=== PATIENT | male | born 1980 | race Caucasian/White ===

== ENCOUNTER 2024-06-25 17:25 | Emergency (ER) | payer OTHER ==
[2024-06-25 17:36] VITALS: BP 165/76; PULSE 103; RESP 20; TEMP 98.2; BMI 25.9
[2024-06-25] MEDS ORDERED: ACETAMINOPHEN INJECTION 100 ML ONE (17:49)
[2024-06-25] MEDS: ACETAMINOPHEN 1000 MG/100 ML BAG IVPB ONE (18:05)
[2024-06-25 18:13] LABS: HEMATOCRIT 38.5 % (35.4-49); HEMOGLOBIN 13.2 G/dL (11.7-16.9); MCH 33.1 pg (25.7-33.7); MCHC 34.4 g/dl (32.0-35.9); MEAN CELL VOLUME 96.3 fl (80-96); MEAN PLT VOLUME 7.6 fl (7.5-11.1); PLATELET COUNT 217.6 10^3/uL (134-434); RDW 14.1 % (11.9-15.9); WHITE BLOOD COUNT 6.3 10^3/uL (4.0-10.8)
[2024-06-25 18:28] LABS: ALBUMIN 4.6 g/dl (3.4-5.0); ALK PHOS 79 U/L (45-117); ANION GAP 9 mmol/L (4-13); BILIRUBIN,TOTAL 0.7 mg/dl (0.2-1); CALCIUM 9.1 mg/dl (8.5-10.1); CHLORIDE 103 mmol/L (98-107); CO2 27 mmol/L (21-32); GLUCOSE,RANDOM 137 mg/dl (74-106); POTASSIUM 3.7 mmol/L (3.5-5.1); SGOT/AST 16 U/L (15-37); SGPT/ALT 14 U/L (7-52); SODIUM 139 mmol/L (136-145)
[2024-06-25 18:46] LABS: PLATELET ESTIMATE ADEQUATE
[2024-06-25] MEDS ORDERED: FUROSEMIDE 40 MG/4 ML INJECTABLE VIAL ONE (18:52)
[2024-06-25] MEDS: FUROSEMIDE 40 MG/4 ML INJECTABLE VIAL IVPUSH ONE (18:57)
[2024-06-25] MEDS ORDERED: oxyCODONE HCL 5 MG TABLET ONE (19:06)
[2024-06-25] MEDS: oxyCODONE HCL 5 MG TABLET PO ONE (19:08)
== END 2024-06-25 20:58 | disposition home or self-care (01) ==
LOC: FER 17:25
PROC: 3E033NZ Introduction of Analgesics, Hypnotics, Sedatives into Peripheral Vein, Percutaneous Approach (ICD-10-PCS; principal; 2024-06-25)
PROC: 3E033GC Introduction of Other Therapeutic Substance into Peripheral Vein, Percutaneous Approach (ICD-10-PCS; 2024-06-25)
DX: I87.2 Venous insufficiency (chronic) (peripheral) (principal); M79.671 Pain in right foot; G89.29 Other chronic pain; R00.0 Tachycardia, unspecified
CPT/HCPCS: 36415; 80053; 85025; 93971-TC; 96374; 96375; 99285-25; J0131

== ENCOUNTER 2024-07-05 10:41 | Inpatient (IN) | payer OTHER ==
[2024-07-05] MEDS ORDERED: ACETAMINOPHEN INJECTION 100 ML ONE (11:47)
[2024-07-05] MEDS: ACETAMINOPHEN 1000 MG/100 ML BAG IVPB ONE (11:52)
[2024-07-05 11:55] LABS: BASO % 0.6 % (0-2.0); HEMATOCRIT 37.3 % (35.4-49); HEMOGLOBIN 12.3 GM/dL (11.7-16.9); LYMPH % 14.5 % (8-40); MCHC 32.9 g/dl (32.0-35.9); MEAN CELL VOLUME 97.2 fl (80-96); MEAN PLT VOLUME 7.3 fl (7.5-11.1); MONO % 7.1 % (3.8-10.2); NEUT % 76.8 % (42.8-82.8); PLATELET COUNT 283 10^3/uL (134-434); RBC 3.84 M/mm3 (4.00-5.60); RDW 13.9 % (11.9-15.9); WHITE BLOOD COUNT 5.1 K/mm3 (4.0-10.0)
[2024-07-05 12:04] LABS: INR 1.05 (0.83-1.09); PROTHROMBIN TIME (PATIENT) 11.5 SEC (9.7-13.0)
[2024-07-05 12:06] LABS: ACTIVATED PTT 29.6 SECONDS (25.2-36.5)
[2024-07-05 12:38] LABS: CHLORIDE 108 mmol/L (98-107); SODIUM 140 mmol/L (136-145)
[2024-07-05 12:39] LABS: CALCIUM 9.2 mg/dL (8.5-10.1); LACTIC ACID 2.1 mmol/L (0.4-2.0)
[2024-07-05 12:40] LABS: ANION GAP 6 mmol/L (4-13); BLOOD UREA NITROGEN 29.3 mg/dL (7-18); CO2 26 mmol/L (21-32); GLUCOSE,RANDOM 110 mg/dL (74-106)
[2024-07-05 12:43] LABS: CREATININE 0.9 mg/dL (0.55-1.3)
[2024-07-05 13:17] LABS: HIV INTERPRETATION NEGATIVE (NEGATIVE)
[2024-07-05] MEDS: SODIUM CHLORIDE 0.9% 500 ML INFUS.BAG IV ONE (15:11)
[2024-07-05 17:32] LABS: POTASSIUM 3.8 mmol/L (3.5-5.1)
[2024-07-05 17:34] LABS: ALBUMIN 3.7 g/dl (3.4-5.0); BLOOD UREA NITROGEN 23.3 mg/dL (7-18); CALCIUM 8.4 mg/dL (8.5-10.1)
[2024-07-05 17:37] VITALS: BMI 26.4
[2024-07-05 17:38] LABS: CREATININE 0.8 mg/dL (0.55-1.3)
[2024-07-05 17:39] LABS: BILIRUBIN,TOTAL 0.8 mg/dL (0.2-1); TOT PROT 6.5 g/dl (6.4-8.2)
[2024-07-05] MEDS: ACETAMINOPHEN 325 MG TABLET (FP) PO PRN (21:26)
[2024-07-06] MEDS ORDERED: oxyCODONE HCL 5 MG TABLET PO PRN (09:33)
[2024-07-06] MEDS ORDERED: ACETAMINOPHEN 325 MG TABLET (FP) PO PRN ×4 (09:35→09:45)
[2024-07-06 09:59] LABS: BASO % 0.6 % (0-2.0); EOS % 1.7 % (0-4.5); HEMATOCRIT 37.2 % (35.4-49); HEMOGLOBIN 12.7 GM/dL (11.7-16.9); LYMPH % 19.3 % (8-40); MCH 32.5 pg (25.7-33.7); MCHC 34.1 g/dl (32.0-35.9); MEAN CELL VOLUME 95.5 fl (80-96); MEAN PLT VOLUME 8.2 fl (7.5-11.1); MONO % 6.5 % (3.8-10.2); NEUT % 71.9 % (42.8-82.8); PLATELET COUNT 272 10^3/uL (134-434); RBC 3.89 M/mm3 (4.00-5.60); RDW 13.6 % (11.9-15.9); WHITE BLOOD COUNT 5.4 K/mm3 (4.0-10.0)
[2024-07-06] MEDS: ENOXAPARIN NA (PORCINE) 40 MG/0.4 ML DISP.SYRIN SQ SCH (10:09)
[2024-07-06 10:27] LABS: POTASSIUM 4.4 mmol/L (3.5-5.1)
[2024-07-06 10:48] LABS: ALBUMIN 3.8 g/dl (3.4-5.0); CALCIUM 8.8 mg/dL (8.5-10.1)
[2024-07-06 10:49] LABS: BLOOD UREA NITROGEN 24.1 mg/dL (7-18)
[2024-07-06 10:52] LABS: CREATININE 0.9 mg/dL (0.55-1.3); PHOSPHOROUS 2.4 mg/dL (2.5-4.9)
[2024-07-06 10:53] LABS: BILIRUBIN,TOTAL 1.5 mg/dL (0.2-1)
[2024-07-07] MEDS: oxyCODONE HCL 5 MG TABLET PO PRN (03:30)
[2024-07-07 09:36] LABS: BASO % 0.5 % (0-2.0); EOS % 1.9 % (0-4.5); HEMATOCRIT 37.6 % (35.4-49); HEMOGLOBIN 12.6 GM/dL (11.7-16.9); MCH 32.3 pg (25.7-33.7); MCHC 33.4 g/dl (32.0-35.9); MEAN CELL VOLUME 96.7 fl (80-96); MEAN PLT VOLUME 8.1 fl (7.5-11.1); MONO % 8.8 % (3.8-10.2); NEUT % 65.8 % (42.8-82.8); PLATELET COUNT 278 10^3/uL (134-434); RBC 3.89 M/mm3 (4.00-5.60); RDW 13.5 % (11.9-15.9); WHITE BLOOD COUNT 4.6 K/mm3 (4.0-10.0)
[2024-07-07 09:58] LABS: ALBUMIN 3.8 g/dl (3.4-5.0); BLOOD UREA NITROGEN 21.4 mg/dL (7-18)
[2024-07-07 10:01] LABS: BILIRUBIN,TOTAL 0.9 mg/dL (0.2-1)
[2024-07-07 10:04] LABS: POTASSIUM 4.1 mmol/L (3.5-5.1)
[2024-07-07 10:05] LABS: CALCIUM 8.6 mg/dL (8.5-10.1)
[2024-07-08 08:32] LABS: HEMATOCRIT 37.3 % (35.4-49); HEMOGLOBIN 12.3 GM/dL (11.7-16.9); MCH 31.9 pg (25.7-33.7); MCHC 33.1 g/dl (32.0-35.9); MEAN CELL VOLUME 96.3 fl (80-96); PLATELET COUNT 270 10^3/uL (134-434); RBC 3.87 M/mm3 (4.00-5.60); RDW 13.4 % (11.9-15.9); WHITE BLOOD COUNT 5.2 K/mm3 (4.0-10.0)
[2024-07-08 08:45] LABS: POTASSIUM 4.4 mmol/L (3.5-5.1)
[2024-07-08 08:52] LABS: CALCIUM 8.9 mg/dL (8.5-10.1)
[2024-07-08 08:53] LABS: BLOOD UREA NITROGEN 21.6 mg/dL (7-18)
[2024-07-09 08:36] LABS: HEMATOCRIT 38.7 % (35.4-49); HEMOGLOBIN 12.8 GM/dL (11.7-16.9); MCH 32.1 pg (25.7-33.7); MCHC 33.2 g/dl (32.0-35.9); MEAN CELL VOLUME 96.7 fl (80-96); MEAN PLT VOLUME 8.3 fl (7.5-11.1); PLATELET COUNT 276 10^3/uL (134-434); RDW 13.4 % (11.9-15.9); WHITE BLOOD COUNT 4.7 K/mm3 (4.0-10.0)
[2024-07-09 08:50] LABS: BLOOD UREA NITROGEN 16.8 mg/dL (7-18); CALCIUM 9.2 mg/dL (8.5-10.1); MAGNESIUM 2.2 mg/dL (1.8-2.4); POTASSIUM 4.6 mmol/L (3.5-5.1)
[2024-07-09] MEDS ORDERED: HEPARIN NA (PORCINE) 5,000 UNITS/ML 1ML VIAL ONE ×2 (13:01→14:01)
[2024-07-09] MEDS ORDERED: PAPAVERINE HCL 30 MG/1 ML 10 ML VIAL NR ONE (13:01)
[2024-07-09] MEDS ORDERED: LIDOCAINE HCL 1%, 10 MG/ML (20ML VIAL) ONE (13:46)
[2024-07-09] MEDS ORDERED: SUCCINYLCHOLINE CHLORIDE 200 MG/10 ML SYRINGE ONE (13:51)
[2024-07-09] MEDS ORDERED: MIDAZOLAM HCL 2 MG/2 ML SINGLE DOSE VIAL ONE ×2 (13:51→15:58)
[2024-07-09] MEDS ORDERED: DEXAMETHASONE SOD PHOSPHATE 4 MG/1 ML VIAL ONE (13:53)
[2024-07-09] MEDS ORDERED: ONDANSETRON 4 MG/2 ML VIAL ONE (13:53)
[2024-07-09] MEDS ORDERED: ceFAZolin SODIUM 1 GM VIAL ONE (13:53)
[2024-07-09] MEDS ORDERED: GLYCOPYRROLATE 0.2 MG/1 ML VIAL ONE (13:53)
[2024-07-09] MEDS ORDERED: PROMETHAZINE HCL 25 MG/1 ML VIAL IVPB PRN ×2 (14:32→19:07)
[2024-07-09] MEDS ORDERED: LACTATED RINGERS SOLUTION 1,000 ML IV SCH (14:45)
[2024-07-09] MEDS ORDERED: PROPOFOL 20 ML ONE ×3 (14:55→16:07)
[2024-07-09] MEDS: ceFAZolin SODIUM 1 GM VIAL IVPB ONE (15:00)
[2024-07-09] MEDS: LIDOCAINE HCL 1%, 10 MG/ML (50 mL VIAL) INF ONE (15:16)
[2024-07-09] MEDS ORDERED: ROCURONIUM BROMIDE 50 MG/5 ML SYRINGE ONE (16:06)
[2024-07-09] MEDS ORDERED: HYDROmorphone HCl 2 MG/ML VIAL ONE (16:16)
[2024-07-09] MEDS ORDERED: PROTAMINE SULFATE 50 MG/5 ML VIAL ONE (18:21)
[2024-07-09] MEDS ORDERED: SUGAMMADEX SODIUM 200 MG/2 ML VIAL ONE (18:43)
[2024-07-09] MEDS ORDERED: ACETAMINOPHEN 325 MG TABLET (FP) PO PRN ×2 (19:07)
[2024-07-09] MEDS: LACTATED RINGERS SOLUTION 1,000 ML IV SCH (19:35)
[2024-07-09 19:37] LABS: HEMATOCRIT 30.9 % (35.4-49); HEMOGLOBIN 10.3 GM/dL (11.7-16.9); MCH 31.7 pg (25.7-33.7); MCHC 33.4 g/dl (32.0-35.9); MEAN PLT VOLUME 7.9 fl (7.5-11.1); PLATELET COUNT 222 10^3/uL (134-434); RBC 3.25 M/mm3 (4.00-5.60); RDW 13.6 % (11.9-15.9); WHITE BLOOD COUNT 8.8 K/mm3 (4.0-10.0)
[2024-07-09 19:53] LABS: INR 1.3 (0.83-1.09); PROTHROMBIN TIME (PATIENT) 14.3 SEC (9.7-13.0)
[2024-07-09 20:38] LABS: POTASSIUM 4.4 mmol/L (3.5-5.1)
[2024-07-09 20:40] LABS: CALCIUM 8.3 mg/dL (8.5-10.1)
[2024-07-09 20:41] LABS: ALBUMIN 3.1 g/dl (3.4-5.0); BLOOD UREA NITROGEN 16.7 mg/dL (7-18)
[2024-07-09 20:45] LABS: BILIRUBIN,TOTAL 0.8 mg/dL (0.2-1); TOT PROT 5.6 g/dl (6.4-8.2)
[2024-07-09] MEDS: MUPIROCIN 2% TOPICAL OINTMENT FOR DECOLONIZATION NS SCH (21:20)
[2024-07-09] MEDS: CHLORHEXIDINE GLUCONATE 4% CLEANSER FOR DECOLONIZATION TP SCH (21:20)
[2024-07-10] MEDS: CEFAZOLIN 1 GM/D5W 1 GM/50 ML BAG IVPB SCH ×2 (01:11→17:52)
[2024-07-10 06:16] LABS: BASO % 0.1 % (0-2.0); EOS % 0.1 % (0-4.5); HEMATOCRIT 28.1 % (35.4-49); HEMOGLOBIN 9.3 GM/dL (11.7-16.9); LYMPH % 11.6 % (8-40); MCHC 33.3 g/dl (32.0-35.9); MEAN CELL VOLUME 96.1 fl (80-96); MONO % 6.8 % (3.8-10.2); NEUT % 81.4 % (42.8-82.8); PLATELET COUNT 228 10^3/uL (134-434); RBC 2.92 M/mm3 (4.00-5.60); RDW 13.5 % (11.9-15.9); WHITE BLOOD COUNT 8.1 K/mm3 (4.0-10.0)
[2024-07-10 06:30] LABS: POTASSIUM 4.9 mmol/L (3.5-5.1)
[2024-07-10 06:35] LABS: CALCIUM 8.2 mg/dL (8.5-10.1); MAGNESIUM 1.8 mg/dL (1.8-2.4)
[2024-07-10 06:36] LABS: BLOOD UREA NITROGEN 16.5 mg/dL (7-18)
[2024-07-10 06:38] LABS: CREATININE 0.9 mg/dL (0.55-1.3)
[2024-07-10 06:40] LABS: BILIRUBIN,TOTAL 1.1 mg/dL (0.2-1)
[2024-07-10 07:00] LABS: TOT PROT 5.5 g/dl (6.4-8.2)
[2024-07-10] MEDS: ENOXAPARIN NA (PORCINE) 40 MG/0.4 ML DISP.SYRIN SQ SCH (09:52)
[2024-07-10 11:59] LABS: HEMATOCRIT 26.2 % (35.4-49); HEMOGLOBIN 8.7 GM/dL (11.7-16.9); MCH 31.9 pg (25.7-33.7); MCHC 33.4 g/dl (32.0-35.9); MEAN CELL VOLUME 95.7 fl (80-96); MEAN PLT VOLUME 7.7 fl (7.5-11.1); PLATELET COUNT 222 10^3/uL (134-434); RBC 2.74 M/mm3 (4.00-5.60); RDW 13.2 % (11.9-15.9); WHITE BLOOD COUNT 7.8 K/mm3 (4.0-10.0)
[2024-07-10] MEDS ORDERED: MUPIROCIN 2% TOPICAL OINTMENT FOR DECOLONIZATION NS SCH (22:00)
[2024-07-10] MEDS: ACETAMINOPHEN 325 MG TABLET (FP) PO PRN (22:15)
[2024-07-10 23:50] VITALS: RESP 18
[2024-07-11 08:55] LABS: BASO % 0.5 % (0-2.0); EOS % 2.3 % (0-4.5); HEMATOCRIT 26.4 % (35.4-49); HEMOGLOBIN 8.9 GM/dL (11.7-16.9); LYMPH % 15.2 % (8-40); MCH 32.3 pg (25.7-33.7); MCHC 33.9 g/dl (32.0-35.9); MEAN CELL VOLUME 95.1 fl (80-96); MEAN PLT VOLUME 8.5 fl (7.5-11.1); MONO % 8.6 % (3.8-10.2); NEUT % 73.4 % (42.8-82.8); PLATELET COUNT 214 10^3/uL (134-434); RBC 2.77 M/mm3 (4.00-5.60); RDW 13.7 % (11.9-15.9); WHITE BLOOD COUNT 7.4 K/mm3 (4.0-10.0)
[2024-07-11 09:18] LABS: POTASSIUM 4.1 mmol/L (3.5-5.1)
[2024-07-11 09:26] LABS: ALBUMIN 3.1 g/dl (3.4-5.0); BLOOD UREA NITROGEN 17.6 mg/dL (7-18); CALCIUM 8.1 mg/dL (8.5-10.1); MAGNESIUM 1.9 mg/dL (1.8-2.4)
[2024-07-11 09:29] LABS: CREATININE 0.9 mg/dL (0.55-1.3)
[2024-07-11 09:30] LABS: PHOSPHOROUS 2.3 mg/dL (2.5-4.9)
[2024-07-11 09:31] LABS: BILIRUBIN,TOTAL 0.7 mg/dL (0.2-1); TOT PROT 5.6 g/dl (6.4-8.2)
[2024-07-11] MEDS: ENOXAPARIN NA (PORCINE) 40 MG/0.4 ML DISP.SYRIN SQ SCH (10:22)
[2024-07-11 14:07] VITALS: BP 112/70; PULSE 60; TEMP 98.4
== END 2024-07-11 14:44 | disposition home health service (06) | DRG 181 ==
LOC: JER 10:41 → JERBED 14:38 → J8W 17:14 → JICU 07-09 20:26 → J8W 07-10 16:37
PROVIDERS: ATTEND Nurse Practitioner Family
PROC: X2K New Technology, Cardiovascular System, Bypass (ICD-10-PCS; 2024-07-09)
PROC: 047 Lower Arteries, Dilation (ICD-10-PCS; 2024-07-09)
PROC: 04LK0ZZ Occlusion of Right Femoral Artery, Open Approach (ICD-10-PCS; 2024-07-09)
PROC: 04BK0ZZ Excision of Right Femoral Artery, Open Approach (ICD-10-PCS; 2024-07-09)
PROC: B41DZZZ Fluoroscopy of Aorta and Bilateral Lower Extremity Arteries (ICD-10-PCS; 2024-07-09)
PROC: 04QK0ZZ Repair Right Femoral Artery, Open Approach (ICD-10-PCS; principal; 2024-07-09 14:00)
DX: I77.0 Arteriovenous fistula, acquired (principal); S91.301A Unspecified open wound, right foot, initial encounter; F17.210 Nicotine dependence, cigarettes, uncomplicated; X58.XXXA Exposure to other specified factors, initial encounter; Y93.9 Activity, unspecified; Y92.89 Other specified places as the place of occurrence of the external cause; Y99.9 Unspecified external cause status
CPT/HCPCS: 36415; 75635-TC; 76000-TC-FY; 80048; 80053; 83605; 83735; 84100; 85025; 85027; 85610; 85651; 85730; 86140; 86803; 86850; 86900; 86901; 86922; 87040; 87070; 87186; 87205; 87389; 93005; 93010; 93306-TC; 93970-TC; 94760; 97116-GP; 97162-GP; 99285-25; 99406; A6022; C1768; C1769; G0463-25; J0131; J1644; Q9967

== ENCOUNTER 2024-07-25 14:09 | Day surgery (SDC) | payer OTHER ==
[2024-07-25 14:20] VITALS: BMI 25.8
[2024-07-25 15:05] LABS: HEMATOCRIT 25.7 % (40.1-51.0); HEMOGLOBIN 8.1 g/dL (13.7-17.5); MCHC 31.5 g/dl (32.3-36.5); MEAN CELL VOLUME 92.1 fl (79.0-92.2); RDW 14.6 % (12.1-15.9)
[2024-07-25 15:08] LABS: INR 1.28 (0.83-1.09); PROTHROMBIN TIME (PATIENT) 14.1 SEC (9.7-13.0)
[2024-07-25 15:11] LABS: ACTIVATED PTT 27.5 SECONDS (25.2-36.5)
[2024-07-25 15:26] LABS: POTASSIUM 4.1 mmol/L (3.5-5.1)
[2024-07-25 15:28] LABS: CALCIUM 8.9 mg/dL (8.5-10.1)
[2024-07-25 15:29] LABS: ALBUMIN 3.2 g/dl (3.4-5.0); BLOOD UREA NITROGEN 17.4 mg/dL (7-18)
[2024-07-25 15:32] LABS: CREATININE 0.9 mg/dL (0.55-1.3)
[2024-07-25 15:33] LABS: BILIRUBIN,TOTAL 0.4 mg/dL (0.2-1); TOT PROT 7.7 g/dl (6.4-8.2)
[2024-07-25] MEDS ORDERED: LIDOCAINE HCL 1%, 10 MG/ML (20ML VIAL) ONE (15:57)
[2024-07-25] MEDS ORDERED: HEPARIN NA (PORCINE) 5,000 UNITS/ML 1ML VIAL ONE (15:57)
[2024-07-25] MEDS ORDERED: PROPOFOL 20 ML ONE ×3 (16:00→16:26)
[2024-07-25] MEDS ORDERED: MIDAZOLAM HCL 2 MG/2 ML SINGLE DOSE VIAL ONE ×2 (16:00→16:16)
[2024-07-25 16:12] LABS: MEAN PLT VOLUME 8.6 fl (9.4-12.4); PLATELET COUNT 935 x10^3/uL (163-337)
[2024-07-25] MEDS: ceFAZolin SODIUM 1 GM VIAL IVPB ONE (16:25)
[2024-07-25] MEDS ORDERED: ONDANSETRON 4 MG/2 ML VIAL ONE (16:33)
[2024-07-25] MEDS ORDERED: DEXAMETHASONE SOD PHOSPHATE 4 MG/1 ML VIAL ONE (16:33)
[2024-07-25] MEDS: LIDOCAINE HCL 1%, 10 MG/ML (20ML VIAL) INF ONE (17:12)
[2024-07-25] MEDS ORDERED: ONDANSETRON 4 MG/2 ML VIAL IVPUSH PRN (17:14)
[2024-07-25] MEDS ORDERED: LACTATED RINGERS SOLUTION 1,000 ML IV SCH (17:15)
[2024-07-25 19:26] VITALS: RESP 20
[2024-07-25 19:40] VITALS: BP 124/57; PULSE 67; TEMP 97.3
[2024-07-25] MEDS ORDERED: APIXABAN 5 MG TABLET PO SCH (22:00)
== END 2024-07-25 20:03 | disposition home or self-care (01) ==
LOC: JER 14:09 → JASUSAT 15:09
PROVIDERS: ATTEND Surgery
DX: I82.421 Acute embolism and thrombosis of right iliac vein (principal)
CPT/HCPCS: 36415; 76000-TC-FY; 80053; 85027; 85610; 85730; 86850; 86900; 86901; 93005; 93010; 94760; 99284-25; C1880; J1644

== ENCOUNTER 2024-08-03 06:55 | Day surgery (SDC) | payer OTHER ==
[2024-08-01 13:38] VITALS: BMI 24.0
[2024-08-03 12:36] VITALS: RESP 18; TEMP 98.3
[2024-08-03 13:24] VITALS: BP 120/70; PULSE 81
== END 2024-08-03 13:26 | disposition home or self-care (01) ==
LOC: JASU-ENDO 06:55
PROVIDERS: ATTEND Internal Medicine Gastroenterology
PROC: 0DB78ZX Excision of Stomach, Pylorus, Via Natural or Artificial Opening Endoscopic, Diagnostic (ICD-10-PCS; 2024-08-03)
PROC: 0DB68ZX Excision of Stomach, Via Natural or Artificial Opening Endoscopic, Diagnostic (ICD-10-PCS; principal; 2024-08-03 12:45)
DX: K29.50 Unspecified chronic gastritis without bleeding (principal); K21.00 Gastro-esophageal reflux disease with esophagitis, without bleeding; K44.9 Diaphragmatic hernia without obstruction or gangrene; K25.3 Acute gastric ulcer without hemorrhage or perforation; K26.3 Acute duodenal ulcer without hemorrhage or perforation
CPT/HCPCS: 88305-TC; 88341-TC; 88342-TC

== ENCOUNTER 2024-10-08 20:04 | Emergency (ER) | payer OTHER ==
[2024-10-08 20:24] VITALS: BP 142/94; PULSE 82; RESP 16; TEMP 98.1; BMI 26.5
[2024-10-08 22:10] LABS: ABSOLUTE IMMATURE GRANULOCYTES 0.01 x10^3/uL (0.0-0.031); BASOPHILS # 0.03 x10^3/uL (0.01-0.08); EOSINOPHIL % 4.9 % (0.8-7.0); EOSINOPHILS # 0.28 x10^3/uL (0.04-0.54); HEMATOCRIT 29.3 % (40.1-51.0); HEMOGLOBIN 8.8 g/dL (13.7-17.5); MEAN CELL VOLUME 72.7 fl (79.0-92.2); MEAN PLT VOLUME 8.7 fl (9.4-12.4); MONOCYTE # 0.46 x10^3/uL (0.30-0.82); MONOCYTE % 8.1 % (5.3-12.2); PLATELET COUNT 444 x10^3/uL (163-337); RDW 17.6 % (12.1-15.9)
[2024-10-08 22:16] LABS: INR 1.17 (0.83-1.09)
[2024-10-08 22:38] LABS: ALBUMIN 4.2 g/dl (3.4-5.0); ALK PHOS 96 U/L (45-117); ANION GAP 9 mmol/L (4-13); BILIRUBIN,TOTAL 0.5 mg/dl (0.2-1); CALCIUM 8.7 mg/dl (8.5-10.1); CHLORIDE 104 mmol/L (98-107); CO2 25 mmol/L (21-32); CREATININE 0.9 mg/dl (0.6-1.3); GLUCOSE,RANDOM 86 mg/dl (74-106); POTASSIUM 3.8 mmol/L (3.5-5.1); SGOT/AST 14 U/L (15-37); SGPT/ALT 7 U/L (7-52); SODIUM 138 mmol/L (136-145); TOT PROT 7.1 g/dl (6.4-8.2)
[2024-10-08] MEDS ORDERED: ACETAMINOPHEN INJECTION 100 ML ONE (22:56)
[2024-10-08] MEDS: ACETAMINOPHEN 1000 MG/100 ML BAG IVPB ONE (23:02)
[2024-10-08] MEDS ORDERED: CLINDAMYCIN HCL 150 MG CAPSULE (FP) ONE (23:50)
[2024-10-08] MEDS: CLINDAMYCIN HCL 300 MG CAPSULE PO ONE (23:53)
== END 2024-10-09 00:29 | disposition home or self-care (01) ==
LOC: FER 20:04
PROC: 3E033NZ Introduction of Analgesics, Hypnotics, Sedatives into Peripheral Vein, Percutaneous Approach (ICD-10-PCS; principal; 2024-10-08)
DX: I82.501 Chronic embolism and thrombosis of unspecified deep veins of right lower extremity (principal); L03.115 Cellulitis of right lower limb
CPT/HCPCS: 36415; 80053; 85025; 85610; 93971-TC; 99285-25